=== PATIENT | female | born 1985 | race Two or more races ===

== ENCOUNTER 2017-10-31 19:23 | Emergency (ER) | payer OTHER ==
[~2017-10-31] VITALS: Ht 162.6 cm; Wt 69.9 kg
--- NOTE | 2017-10-31 20:00 | NUR ---
BIB SELF C/C GENERALIZED BODY PAIN, FEVER, CHILLS SINCE MONDAY WITH NO IMPROVEMENT. PT STATES SHE WAS AT A URGENT CARE 2 DAYS AGO AND WAS PREXCRIBED AMOXICILIN. 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 PT IS AFEBRILE UPON ARRIVAL. PT IS AAOX4. PT PLACED IN GOWN AND ON AQUATIC PHYSIOTHERAPIST AND POX. RESP EVEN UNLABORED. NO S/S OF ACUTE DISTRESS NOTED. SKIN WARM AND DRY. PT DENIES N-V-D AT THIS TIME. AWAITATUL [place] FOR EVAL.
[2017-10-31] MEDS ORDERED: ONDANSETRON HCL/PF 4 MG/2 ML VIAL ONE (20:03)
[2017-10-31 20:11] LABS: BASOPHILS % (AUTO) 0.3 % (0.0-2.0); EOSINOPHILS % (AUTO) 0.1 % (0.0-6.0); HEMATOCRIT 41 % (33-45); HEMOGLOBIN 14.1 g/dL (11.5-14.8); LYMPHOCYTES # (AUTO) 0.8 /CMM (0.8-4.8); MEAN CORPUSCULAR HEMOGLOBIN 31 PG (26.0-33.0); MEAN CORPUSCULAR HGB CONC 34 g/dl (31.0-36.0); MEAN CORPUSCULAR VOLUME 89 fL (82-100); MONOCYTES # (AUTO) 0.6 /CMM (0.1-1.30); MONOCYTES % (AUTO) 6.2 % (2.0-12.0); NEUTROPHILS # (AUTO) 8.2 /CMM (1.8-8.9); NEUTROPHILS % (AUTO) 85.4 % (43.0-81.0); PLATELET COUNT (AUTO) 168 /CMM (150-450); RDW COEFFICIENT OF VARIATION 12.4 (11.5-15.0); RED BLOOD CELL COUNT(AUTO) 4.61 MIL/uL (4.0-5.2); WHITE BLOOD COUNT (AUTO) 9.6 K/uL (4.3-11.0)
[2017-10-31] MEDS: ONDANSETRON HCL/PF 4 MG/2 ML VIAL IVP ONE (20:12)
[2017-10-31 20:21] LABS: CALCIUM, SERUM 8.2 mg/dL (8.5-10.1); CREATININE 0.8 mg/dL (0.6-1.3)
[2017-10-31 20:26] LABS: BILIRUBIN,DIRECT 0.1 mg/dL (0.0-0.2); BILIRUBIN,TOTAL 0.3 mg/dL (0.2-1.0); TOTAL PROTEIN, SERUM 6.7 g/dL (6.4-8.2)
[2017-10-31 20:43] LABS: APPEARANCE,URINE Slightly Cloudy (CLEAR); BILIRUBIN,URINE Negative (NEGATIVE); BLOOD, URINE Small Ery/uL (NEGATIVE); COLOR,URINE Yellow (YELLOW); KETONES,URINE Negative (NEGATIVE); LEUKOCYTE ESTERASE ,URINE Trace (NEGATIVE); NITRITE, URINE Negative (NEGATIVE); PH,URINE 6.5 (5.0-8.0); PROTEIN,URINE Negative (NEGATIVE); UGLUCOSE Negative (NEGATIVE); UROBILINOGEN,URINE 0.2 EU/dL (0.2)
[2017-10-31] MEDS ORDERED: POTASSIUM CHLORIDE 20 MEQ TAB.PRT.SR PO ONE (20:52)
[2017-10-31 20:53] LABS: BACTERIA,URINE Few /HPF (None Seen); SQUAMOUS EPITHELIAL CELL,UR Few /HPF (None Seen)
[2017-10-31] MEDS ORDERED: POTASSIUM CHLORIDE 10 MEQ TABLET.SA ONE (20:53)
[2017-10-31] MEDS: POTASSIUM CHLORIDE 20 MEQ TAB.PRT.SR PO ONE (21:00)
[2017-10-31] MEDS: IV NS 0.9% 1,000 ML BAG IV ONE (21:00)
--- NOTE | 2017-10-31 21:00 | NUR ---
[facility] 60MEQ GIVEN PO TO Pt. STARTED ON IVF NS ON RAC #20G.
[2017-10-31] MEDS ORDERED: LEVOFLOXACIN 750 MG /D5W 150ML 150 ML IV ONE (21:15)
[2017-10-31] MEDS: LEVOFLOXACIN 750 MG /D5W 150ML PIGGYBACK IV ONE (21:23)
--- NOTE | 2017-10-31 22:30 | NUR ---
pt comfortably in bed. waiting for iv abx levaquin to finish before pt leaves. vs stable.
--- NOTE | 2017-10-31 23:10 | NUR ---
Patient discharged to home in stable condition. Written and verbal after care instructions given. Patient verbalizes understanding of instruction. Pt instructed not to drive, is having someone pick them up from the ER. IV access RAC removed, secured with guaze, no bleeding noted. pt walked out on foot with steady gait. no s/s of acute distress or sob noted. VS stable.
[2017-10-31 23:16] VITALS: BP 110/67
== END 2017-10-31 23:17 | disposition home or self-care (01) ==
LOC: ER 19:24
DX: J18.9 Pneumonia, unspecified organism (principal); E87.6 Hypokalemia; E86.0 Dehydration; F41.9 Anxiety disorder, unspecified
CPT/HCPCS: 36415; 71045; 80048; 80076; 81001; 83690; 84703; 85025; 96365; 96375; 99285; A4606; J1956; J2405; J7030; Z7610; 81000-TC